=== PATIENT | female | born 1965 | race African-American/Black ===

== ENCOUNTER 2017-04-24 21:08 | Emergency (ER) | payer MEDICAID, OTHER ==
[~2017-04-24] VITALS: Ht 165.1 cm; Wt 113.0 kg
[~2017-04-24 21:08] MED LIST: ATOR20TA65 PO; BENA20TA3 PO; GABA-533 PO; METF500T4 PO; SITA1TAB8 PO
[2017-04-24 22:46] LABS: CLARITY URINE CLEAR (CLEAR); COLOR URINE YELLOW (YELLOW); KETONES URINE 1+ (NEGATIVE); LEUKOCYTE ESTERASE URINE NEGATIVE (NEGATIVE); NITRITE URINE NEGATIVE (NEGATIVE); OCCULT BLOOD URINE NEGATIVE (NEGATIVE); PROTEIN URINE NEGATIVE (NEGATIVE); SPECIFIC GRAVITY URINE 1.036 (1.005-1.030); UROBILINOGEN URINE 0.2 E.U./dL (0.2-1.0)
[2017-04-24 22:56] LABS: BASOPHILS % 0.9 % (0.0-2.0); EOSINOPHILS % 2.7 % (0.0-5.0); HEMATOCRIT. 40.6 % (36.0-48.0); LYMPHOCYTES % 32.4 % (20.0-50.0); MEAN CORPUSCULAR HEMOGLOBIN 31.3 pg (28.0-32.0); MEAN CORPUSCULAR VOLUME 90.6 fL (81.0-99.0); MEAN PLATELET VOLUME 8.3 fl (7.4-10.4); MONOCYTES % 5.4 % (2.0-8.0); NEUTROPHILS % 58.6 % (40.0-76.0); PLATELET 235 x1000/uL (130-400); RED BLOOD CELL COUNT 4.48 mill/uL (4.2-5.4); RED CELL DISTRIBUTION WIDTH 12.5 % (11.6-14.6)
[2017-04-24 22:59] LABS: CHLORIDE 103 mEq/L (98-107)
[2017-04-24 23:03] LABS: INR 0.9; PROTHROMBIN TIME 9.9 sec (9.4-11.6)
[2017-04-24] MEDS ORDERED: FENTANYL CITRATE/PF 50MCG/ML 2ML VIAL IV ONE (23:30)
[2017-04-24] MEDS ORDERED: DIPHENHYDRAMINE 50MG/ML VIAL IV ONE (23:30)
[2017-04-24] MEDS ORDERED: PROCHLORPERAZINE 10MG/2ML VIAL IV ONE (23:30)
[2017-04-24] MEDS ORDERED: SODIUM CHLORIDE 0.9% 1,000 ML IV ONE (23:46)
[2017-04-25] MEDS ORDERED: KETOROLAC 30MG/ML VIAL IV SCH (02:30)
[2017-04-25] MEDS ORDERED: IOHEXOL-300 100 ML BOTTLE ONE (02:54)
[2017-04-25 04:10] VITALS: BP 169/98
== END 2017-04-25 04:28 | disposition home or self-care (01) ==
LOC: ER 21:30
DX: K63.89 Other specified diseases of intestine (principal); R51 Headache; R11.0 Nausea; I10 Essential (primary) hypertension; R10.9 Unspecified abdominal pain; E11.65 Type 2 diabetes mellitus with hyperglycemia; E78.00 Pure hypercholesterolemia, unspecified; K76.0 Fatty (change of) liver, not elsewhere classified; F17.200 Nicotine dependence, unspecified, uncomplicated; I25.2 Old myocardial infarction; K57.90 Diverticulosis of intestine, part unspecified, without perforation or abscess without bleeding; I25.10 Atherosclerotic heart disease of native coronary artery without angina pectoris; Z88.5 Allergy status to narcotic agent; Z86.73 Personal history of transient ischemic attack (TIA), and cerebral infarction without residual deficits; Z90.49 Acquired absence of other specified parts of digestive tract; Z91.19 Patient's noncompliance with other medical treatment and regimen
CPT/HCPCS: 36415; 70450; 74177; 80053; 81001; 83690; 85025; 85610; 96361; 96374; 96375; 99285; J0780; J1200; J1885; J3010; J7030; Q9967; Z7610